=== PATIENT | female | born 1950 | race Asian ===

== ENCOUNTER 2018-03-24 15:13 | Emergency (ER) | payer OTHER ==
--- NOTE | 2018-03-24 15:53 | PDOC ---
Rapid Medical Evaluation Chief Complaint: Pain, Acute Time Seen by Provider: 03/24/18 15:48 Medical Evaluation: Allergies Allergy/AdvReac Type Severity Reaction Status Date / Time CT SCAN DYE Allergy Uncoded 03/24/18 15:48 03/24/18 15:48 c/o right shoulder pain worsening for 1 week. pain radiating down to right arm. unable to lift arm. patient works as a nurse unsure of injury Pe: patient alert ox3. limited rom to left shoulder no midline pain A: right shoulder pain P: xray patient to the ER for further management of care. 03/24/18 15:53 Discharge Disposition - Diagnosis Right shoulder pain Qualifiers: Chronicity: acute Qualified Code(s): M25.511 - Pain in right shoulder - Referrals Referrals: Madonna Houser MD [Primary Care Provider] - - Patient Instructions - Post Discharge Activity
[2018-03-24 15:55] VITALS: BMI 31.1
--- NOTE | 2018-03-24 18:11 | PDOC ---
History of Present Illness - General Chief Complaint: Pain, Acute Stated Complaint: SHOULDER PAIN Time Seen by Provider: 03/24/18 15:48 - History of Present Illness Initial Comments: Beck Salcedo is a 67yo woman with a PMH of CAD, HTN, and DM who presents with worsening right shoulder and arm pain for one week. 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 Last week, she had several hours free and took a nap on the couch between shifts at work. She had some right shoulder pain when she woke up, though she does not remember injuring the arm or doing anything unusual that would cause pain. She asked a therapist at work and was told to not move the right arm at all, so she has been trying to avoid moving her arm as much as possible. She reports that the pain has worsened over the past week. Initially, it was present only in the shoulder, but it has progressed distally down her arm. She also has some burning pains that shoot down her arm from the shoulder, but the baseline pain is sharp. Ms Salcedo has been taking 400-600mg of ibuprofen at home every 4 hours or so for pain. She reports that the pain initially resolves with the ibuprofen, but it comes back. Ms Salcedo recently went to see her hair spinning machine operator, Dr Mckenzie, a little over a week ago. She was told that she had some changes on her EKG and that she had a "mini heart attack" at some point in the past. When she had arm pain, she was concerned that the pain was due to her heart, and she presented to the ED. She denies any chest pain, palpitations, SOB, diaphoresis, nausea/vomiting. She states that her blood pressure and DM are well controlled as she always takes her medicine at home. She has no other complaints currently. Past History - Past Medical History Allergies/Adverse Reactions: Allergies Allergy/AdvReac Type Severity Reaction Status Date / Time Iodinated Contrast- Oral and Allergy Verified 03/24/18 18:[address] SCAN DYE Allergy Uncoded 03/24/18 15:48 Home Medications: Ambulatory Orders Nebivolol HCl [Bystolic] 10 mg PO DAILY 04/20/13 Pravastatin Sodium [Pravachol -] 40 mg PO HS 04/20/13 metFORMIN HCL [Glucophage -] 500 mg PO DAILY 04/20/13 Alprazolam [Xanax] 0.25 mg PO PRN PRN 05/29/15 Calcium Carbonate/Vitamin D3 [Calcium 500 + D Tablet] 1 each PO DAILY 05/29/15 Famotidine [Pepcid] 20 mg PO PRN PRN 05/29/15 Ibuprofen [Ibu] 600 mg PO TID PRN #21 tablet 03/24/18 Anemia: No Asthma: No Cancer: Yes (RECTAL) Cardiac Disorders: Yes (HEART MURMUR) CVA: No COPD: No CHF: No Dementia: No Diabetes: Yes GI Disorders: Yes (RECTAL CA, DIVERTICULOSIS, COLON POLYPS) Disorders: No HTN: Yes Hypercholesterolemia: Yes Liver Disease: No Seizures: No Thyroid Disease: No - Surgical History Abdominal Surgery: Yes (ABDOMINALPLASTY, COLON RESECTION VIA ESU) Appendectomy: Yes Cardiac Surgery: No Cholecystectomy: No Lung Surgery: No Neurologic Surgery: No Orthopedic Surgery: No - Suicide/Smoking/Psychosocial Hx Smoking History: Former smoker Have you smoked in the past 12 months: No If you are a former smoker, when did you quit?: 1989 Information on smoking cessation initiated: No Hx Alcohol Use: Yes (rarely) Drug/Substance Use Hx: No Substance Use Type: None Hx Substance Use Treatment: No Review of Systems - Review of Systems Comments:: General: No fevers, no chills, no weight or appetite change, no malaise HEENT: No changes in vision, no changes in hearing, no congestion, no sore throat CV: No chest pain, no palpitations, no LE edema Pulm: No SOB, no cough, no wheezing GI: No nausea or vomiting, no change in bowel habits, no melena : No frequency, no urgency, no dysuria Musc: No back pain, no joint swelling, no recent injury. +Worsening R shoulder/ arm pain Skin: No rash, no lesions, no erythema Endo: No excessive thirst, no heat/cold intolerance Heme: No unusual bruising or bleeding, no swollen glands Neuro: No syncope, no numbness/tingling, no focal weakness Vasc: No claudication Psych: No recent change in mood, no SI or HI *Physical Exam - Vital Signs Last Vital Signs Temp Pulse Resp BP Pulse Ox 98.3 F 67 17 183/93 H 99 03/24/18 15:48 03/24/18 15:48 03/24/18 15:48 03/24/18 15:48 03/24/18 15:48 - Physical Exam Comments: General: Comfortable, no acute distress HEENT: PERRL, EOMI, MMM, voice normal, normal neck ROM Cards: RRR, no murmur appreciated Pulm: Comfortable on room air, clear to auscultation bilaterally Abd: Soft, nontender, nondistended Ext: Right arm with ROM limited by pain. Abduction of arm to only 45 degrees, then lifts shoulder to raise arm. Strength 5/5 at right fingers, wrist, elbow, and shoulder. Sensation intact in all nerve 3 distributions. No palpable injury or deformity. Vasc: Extremities WWP. Palpable radial and pedal pulses bilaterally Skin: Normal color, no rashes or lesions Neuro: A&Ox3, CN grossly intact, normal speech, motor/sensory grossly intact and symmetric Psych: Mood appropriate to situation, appears concerned Medical Decision Making - Medical Decision Making 03/24/18 18:11 Beck Salcedo is a 67yo woman with a PMH of CAD, HTN, and DM who presents with worsening right shoulder and arm pain for one week. - Arm ROM limited by pain, but no warmth, swelling, fluctuance, or fevers that wound suggest a septic joint. - The pain started after sleeping on the couch at work. Most likely due to sleeping on the arm. Pain may have been worsened by her job as a nurse or due to some degree of frozen shoulder after attempting to keep the shoulder still for a week. - Xrays ordered in E. Reviwed images, no significant abnormalities noted - Will give IM toradol for pain control - Discussed xray results with patient. Should continue NSAIDS at home, will refer to ortho for follow up. Discussed with Dr Medel. Breonna Gutierrez PGY1 *DC/Admit/Observation/Transfer Diagnosis at time of Disposition: Right shoulder pain Qualifiers: Chronicity: acute Qualified Code(s): M25.511 - Pain in right shoulder - Discharge Dispostion Disposition: HOME Condition at time of disposition: Stable Decision to Admit order: No - Referrals Referrals: Madonna Houser MD [Primary Care Provider] - Eugenio Broderick MD [Staff Physician] - - Patient Instructions Printed Discharge Instructions: Frozen Shoulder, DI for Shoulder Pain Additional Instructions: Discharge Instructions: - You were seen in the ED for right shoulder pain. You had an xray that did not show any broken bones or dislocation. - Your pain is most likely due to a muscle injury, pull, or strain. This should resolve after a few days. - For pain control, you have been prescribed ibuprofen 600mg that may be taken every 8 hours. You may start taking this tomorrow; do not take any tonight as you received a similar medication in the emergency department. If you have continued pain, you may take acetaminophen (Tylenol) 1-2 tablets in between the ibuprofen. Do not take more than 4000mg of acetaminophen per day, and do not take any additional pain medications. - Continue to stretch your arm and shoulder as much as you can tolerate. - Call Tuesday to schedule a follow up appointment with orthopedics. You have been referred to Dr Broderick. - You should also be seen by your primary physician within the next week. - Seek immediate medical care if you have any neurological deficits such as numbness or complete inability to move your arm. You should also seek treatment for chest pain, especially if you also have severe sweating, nausea/vomiting, palpitations, or lightheadedness. - Post Discharge Activity
--- NOTE | 2018-03-24 18:36 | PDOC ---
Attending Attestation - Resident Resident Name: GerardomaryluBreonna - ED Attending Attestation I have performed the following: I have examined & evaluated the patient, The case was reviewed & discussed with the resident, I agree w/resident's findings & plan, Exceptions are as noted - Physicial Exam PE: 03/24/18 18:34 awake alert lungs clear bilaterally heart rrr no mrg. abd soft nt. right shoulder anterior lateral ttp. can range/ abduction to 45deg., limited by pain. elbow wrist from, nt. distally n/v intact. no shoulder erythema. no warmth. no palp effusion. xray negative. will tx with toradol. recommend antiinflammatory motrin 600, followup with orthopedics. recommend range of motion exercise. <Cleo Medel - Last Filed: 03/24/18 18:34> - HPI HPI: This patient is a 67 year old female, with PMHx of HTN, CAD, DM, who presents to the ED for 1 week of worsening right arm/shoulder pain. Patient states that she saw her valve and regulator repairer (Dr. Mckenzie) last week and was told she had a little heart attack in the past. 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 She states that she has been having right arm and shoulder pain ever since. She states that her shoulder pain is worse with movement, lifting, and abducting. She states that she was instructed by a therapist where she works to not move her arm. She has been taking 2-3 ibuprofen over the past week and states that it temporarily gives relief but stops working after 3-4 hours. She comes in today because she is concerned that her right arm/shoulder pain may be her heart-related. Denies any fever, chills, chest pain, or shortness of breath. <Lashon Newell - Last Filed: 03/24/18 19:31>
[2018-03-24] MEDS ORDERED: KETOROLAC TROMETHAMINE 60 MG/2 ML VIAL IM ONE (18:45)
[2018-03-24] MEDS ORDERED: KETOROLAC TROMETHAMINE 60 MG/2 ML VIAL ONE (18:47)
[2018-03-24 19:26] VITALS: BP 159/76; PULSE 68; TEMP 98.1
== END 2018-03-24 19:26 | disposition home or self-care (01) ==
LOC: JER 15:13
PROC: 3E0233Z Introduction of Anti-inflammatory into Muscle, Percutaneous Approach (ICD-10-PCS; principal; 2018-03-24)
DX: M25.511 Pain in right shoulder (principal); I10 Essential (primary) hypertension; E11.9 Type 2 diabetes mellitus without complications; I25.10 Atherosclerotic heart disease of native coronary artery without angina pectoris
CPT/HCPCS: 73030-TC-RT-FY; 96372; 99283-25

== ENCOUNTER 2018-04-06 04:43 | Day surgery (SDC) | payer OTHER ==
[2018-04-05 17:51] VITALS: BMI 29.2
[2018-04-06] MEDS ORDERED: ACETAMINOPHEN 1000 MG/100 ML VIAL (NON FORMULARY) IVPB ONE ×2 (15:51→17:10)
--- NOTE | 2018-04-06 15:51 | HP ---
Satellite [facility] - Chief Complaint Chief Complaint: vaginal cyst and JAMES History Source: Patient Limitations to Obtaining History: No Limitations - Past Medical History Allergies/Adverse Reactions: Allergies Allergy/AdvReac Type Severity Reaction Status Date / Time Iodinated Contrast- Oral and Allergy Verified 04/06/18 13:[address] SCAN DYE Allergy Uncoded 04/06/18 13:40 Renal/: Yes: UTI, Other - Current Medications Current Medications: Home Medications Medication Instructions Recorded Nebivolol HCl [Bystolic] 20 mg PO DAILY 04/20/13 Pravastatin Sodium [Pravachol -] 40 mg PO HS 04/20/13 metFORMIN HCL [Glucophage -] 500 mg PO DAILY 04/20/13 Alprazolam [Xanax] 0.5 mg PO PRN PRN 05/29/15 Calcium Carbonate/Vitamin D3 1 each PO DAILY 05/29/15 [Calcium 500 + D Tablet] Ibuprofen [Ibu] 600 mg PO TID PRN #21 tablet 03/24/18 Hydrochlorothiazide 12.5 mg PO DAILY 04/05/18 Satellite Physical Exam - Physical Examination Vital Signs: Vital Signs Period Temp Pulse Resp BP Sys/Gandara Pulse Ox Last 24 Hr 98.3 F-98.3 F 67-67 20-20 135-135/82-82 98 General Appearance: Well Nourished, Well Developed, Alert & Oriented x3 ENT: Clear Lung: Clear to auscultation Heart: Regular rate & rhythm Abdomen: Soft Extremities: No edema, No tenderness/swelling Pelvic Exam: Other External Genitalia (vaginal paraurethral cyst) Neurological: Intact Satellite Impression/Plan - Impression/Plan Impression: vaginal paraurethral cyst Operative Procedure: excision of vaginal paraurethral cyst Date to be Performed: 04/06/18
[2018-04-06] MEDS ORDERED: MIDAZOLAM HCL 2 MG/2 ML SINGLE DOSE VIAL ONE (15:54)
[2018-04-06] MEDS ORDERED: LIDOCAINE HCL/PF 2% SDV 5ML VIAL ONE (15:54)
[2018-04-06] MEDS ORDERED: DEXTROSE 5%-0.45% SALINE 1,000 ML IV SCH (16:00)
[2018-04-06] MEDS ORDERED: IBUPROFEN 800 MG/8 ML IJ IVPB SCH (16:00)
[2018-04-06] MEDS ORDERED: ceFAZolin SODIUM 1 GM VIAL IVPB ONE (16:06)
[2018-04-06] MEDS ORDERED: ceFAZolin SODIUM 1 GM VIAL ONE (16:07)
[2018-04-06] MEDS ORDERED: SODIUM CHLORIDE 0.9% P/F 10 ML VIAL IJ ONE (16:07)
[2018-04-06] MEDS ORDERED: DEXAMETHASONE SOD PHOSPHATE 4 MG/1 ML VIAL ONE (16:08)
[2018-04-06] MEDS ORDERED: KETOROLAC TROMETHAMINE 30 MG/1 ML VIAL ONE (16:22)
[2018-04-06] MEDS ORDERED: PROMETHAZINE HCL 25 MG/1 ML VIAL IVPUSH PRN (16:47)
[2018-04-06] MEDS ORDERED: ONDANSETRON 4 MG/2 ML VIAL IVPUSH PRN (16:47)
[2018-04-06] MEDS ORDERED: LACTATED RINGERS SOLUTION 1,000 ML IV SCH (17:00)
[2018-04-06] MEDS ORDERED: ACETAMINOPHEN INJECTION 100 ML IVPB ONE (17:28)
[2018-04-06 19:53] VITALS: BP 136/76; PULSE 53; TEMP 100
--- NOTE | 2018-04-10 17:58 | PATH ---
Surgical Pathology Report Patient Name: KULDIP BUCHANAN [facility]. Rec. #: [id number] /Age/Gender: 1950 (Age: 67) / F Account: [id number] Location: U SURGICAL Taken: 04/06/2018 Received: 04/07/2018 Reported: 04/10/2018 Physicians: Edwar Pack M.D. Specimen(s) Received PORTION CYST WALL Clinical History Urethral diverticulum Final Diagnosis CYST WALL, PORTION, EXCISION:FRAGMENTS OF BENIGN FIBROMUSCULAR TISSUE. NO UROTHELIAL MUCOSA IDENTIFIED. Electronically Signed Kacey Demarco M.D. Gross Description Received in formalin labeled "portion of cyst wall," are 2 guillermo rausch soft tissue fragments measuring 0.3 and 0.7 cm in greatest dimension. The specimens are submitted in toto in one cassette. /04/07/201804/07/2018
--- NOTE | 2018-04-13 16:08 | OP ---
DATE OF OPERATION: 04/06/2018 PREOPERATIVE DIAGNOSIS: Periurethral cyst. POSTOPERATIVE DIAGNOSIS: Periurethral cyst. PROCEDURE: Excision of cyst. SURGEON: Edwar Pack MD ESTIMATED BLOOD LOSS: Minimal. PREOPERATIVE INDICATIONS: The patient is a 67-year-old female who came in with reports and complaints of a cyst of her urethra. On exam, there was a cyst along the urethra slightly on the left side. MRI was ordered, and the MRI revealed that it was a Bartholin gland cyst, not a urethral diverticulum. She comes today for excision. She also has complaints of pre-existing stress urinary incontinence. OPERATION: The patient was brought to the OR, placed on the table in the supine position, given general anesthesia and IV antibiotics, and placed in the modified lithotomy position. The groin was prepped and draped sterilely. Timeout was performed. A Hoyt catheter was placed. The cyst was palpated along the distal aspect of the urethra toward the left side. Pitressin was injected underneath the mucosa. Incision was made, and the cyst was identified. Portion of the cyst was excised. The cyst was then closed using 3-0 chromic suture. Two other non-overlapping suture lines were then used to close the incision. The urethra was not involved. Hoyt catheter was removed. Patient was woken up. Kait [id number]
== END 2018-04-06 19:50 | disposition home or self-care (01) ==
LOC: JASU-SURG 04:43
PROVIDERS: ATTEND Urology
PROC: 0UBLXZZ Excision of Vestibular Gland, External Approach (ICD-10-PCS; principal; 2018-04-06 15:00)
DX: N75.0 Cyst of Bartholin's gland (principal)
CPT/HCPCS: 82962; 88304-TC; 94760; J0131

== ENCOUNTER 2021-10-04 14:22 | Emergency (ER) | payer OTHER ==
[2021-10-04 14:28] VITALS: BP 115/73; PULSE 87; TEMP 98; BMI 31.1
[2021-10-04] MEDS ORDERED: CLINDAMYCIN HCL 150 MG CAPSULE (FP) PO ONE (15:06)
[2021-10-04] MEDS ORDERED: ACETAMINOPHEN 500 MG TABLET (FP) PO ONE (15:06)
[2021-10-04] MEDS ORDERED: CLINDAMYCIN HCL 150 MG CAPSULE (FP) ONE (15:09)
[2021-10-04] MEDS ORDERED: ACETAMINOPHEN 325 MG TABLET (FP) ONE (15:10)
[2021-10-04] MEDS ORDERED: LORazepam 2 MG/ML SDV VIAL IVPUSH ONE (17:47)
[2021-10-04] MEDS ORDERED: LORazepam 2 MG/ML SDV VIAL IM ONE (17:49)
== END 2021-10-04 18:18 | disposition home or self-care (01) ==
LOC: JER 14:22
PROC: 3E023NZ Introduction of Analgesics, Hypnotics, Sedatives into Muscle, Percutaneous Approach (ICD-10-PCS; principal; 2021-10-04)
DX: L02.216 Cutaneous abscess of umbilicus (principal)
CPT/HCPCS: 74176-TC; 96372; 99284-25